=== PATIENT | female | born 1965 | race American Indian/Alaskan Native ===

== ENCOUNTER 2016-02-27 16:31 | Emergency (ER) | payer OTHER ==
[2016-02-27] MEDS ORDERED: TORADOL IM ONE (22:51)
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
[2016-02-27 23:43] VITALS: BP 159/95
== END 2016-02-27 23:48 | disposition left against medical advice (07) ==
LOC: ED 16:31
DX: M25.571 Pain in right ankle and joints of right foot (principal); V49.49XA Driver injured in collision with other motor vehicles in traffic accident, initial encounter; Y93.9 Activity, unspecified; Y92.9 Unspecified place or not applicable; Y99.9 Unspecified external cause status
CPT/HCPCS: 96372; 99282; J1885

== ENCOUNTER 2017-02-21 13:06 | Emergency (ER) | payer OTHER ==
[2017-02-21] MEDS ORDERED: NORCO 5/325 PO ONE (17:25)
--- NOTE | 2017-02-21 17:43 | Emergency Department Report ---
ED General Adult HPI - General Chief complaint: Medical Clearance Stated complaint: FALL, GENERAL PAIN Time Seen by Provider: 02/21/17 17:20 Source: patient, family Mode of arrival: Ambulatory Limitations: No Limitations - History of Present Illness Initial comments: pt is a 52 y/o aaf with hx of djd , lamminectomy, htn, who presents for GLF no loc yesterday at [facility] pt states shes was loading wood in cart and tripped and fell striking head chest and left tib fib pt states pain the head neck chest wall and LLTib/Fib region, there was no loc pt was immediately ambulatory after incident Pain is described as aching 6/10 generalized all low pain is exacerbated by movement , there is no weakness no blurred vision no n/v no numbness no tingling, no loss or decrease in bowel or bladder function pt ambulated to ed today states gait remains at baseline. Onset/Timin -: days(s) Location: head, neck, chest (chest wall ), lower extremity Radiation: non-radiation Severity scale (0 -10): 8 Quality: aching, other (soreness) Consistency: constant Improves with: none Worsens with: movement Associated Symptoms: chest pain (chest wall pain right lateral ), headaches. denies: confusion, cough, diaphoresis, fever/chills, loss of appetite, malaise, nausea/vomiting, rash, seizure, shortness of breath, syncope, weakness Treatments Prior to Arrival: none - Related Data Previous Rx's Medication Instructions Recorded Last Taken Type Ciprofloxacin HCl [Cipro] 250 mg PO BID #6 tablet 07/23/14 Unknown Rx Cyclobenzaprine [Flexeril] 10 mg PO TID PRN #15 tablet 02/27/16 Unknown Rx Ibuprofen [Motrin] 800 mg PO Q8HR PRN #15 tablet 02/27/16 Unknown Rx Acetaminophen 1,000 mg PO QID PRN #30 tablet 02/21/17 Unknown Rx Cyclobenzaprine [Flexeril] 10 mg PO BID PRN #20 tablet 02/21/17 Unknown Rx Menthol/Camphor [[place] 1 applicatio TP BID PRN #1 tube 02/21/17 Unknown Rx Ointment] traMADol [Ultram] 50 mg PO BID PRN #6 tablet 02/21/17 Unknown Rx Allergies Allergy/AdvReac Type Severity Reaction Status Date / Time tramadol Allergy Itching Verified 07/23/14 11:59 ED Review of Systems ROS: Stated complaint: FALL, GENERAL PAIN Other details as noted in HPI Constitutional: denies: chills, fever Eyes: denies: eye pain, eye discharge, vision change ENT: denies: ear pain, throat pain Respiratory: denies: cough, shortness of breath, wheezing Cardiovascular: chest pain (chest wall pain ). denies: palpitations, dyspnea on exertion, edema, syncope, paroxysmal nocturnal dyspnea Endocrine: no symptoms reported Gastrointestinal: denies: abdominal pain, nausea, vomiting, diarrhea, constipation, hematemesis, melena, hematochezia Genitourinary: denies: urgency, dysuria, frequency, hematuria, discharge, abnormal menses, dyspareunia Musculoskeletal: back pain, arthralgia, myalgia. denies: joint swelling Skin: denies: rash, lesions Neurological: denies: headache, weakness, numbness, paresthesias, confusion, abnormal gait, vertigo Psychiatric: denies: anxiety, depression Hematological/Lymphatic: denies: easy bleeding, easy bruising ED Past Medical Hx - Past Medical History Hx Hypertension: Yes - Surgical History Past Surgical History?: Yes Additional Surgical History: "hernia repair" "bladder sling" "gallbladder". Partial hysterectomy - Social History Smoking Status: Never Smoker Substance Use Type: None - Medications Home Medications: Home Medications Medication Instructions Recorded Confirmed Last Taken Type Ciprofloxacin HCl [Cipro] 250 mg PO BID #6 tablet 07/23/14 Unknown Rx Cyclobenzaprine [Flexeril] 10 mg PO TID PRN #15 tablet 02/27/16 Unknown Rx Ibuprofen [Motrin] 800 mg PO Q8HR PRN #15 tablet 02/27/16 Unknown Rx Acetaminophen 1,000 mg PO QID PRN #30 tablet 02/21/17 Unknown Rx Cyclobenzaprine [Flexeril] 10 mg PO BID PRN #20 tablet 02/21/17 Unknown Rx Menthol/Camphor [[place] 1 applicatio TP BID PRN #1 tube 02/21/17 Unknown Rx Ointment] traMADol [Ultram] 50 mg PO BID PRN #6 tablet 02/21/17 Unknown Rx ED Physical Exam - General Limitations: No Limitations General appearance: alert, in no apparent distress - Head Head exam: Present: atraumatic, normocephalic, normal inspection - Eye Eye exam: Present: normal appearance, PERRL, EOMI. Absent: nystagmus, periorbital swelling, periorbital tenderness Pupils: Present: normal accommodation - ENT ENT exam: Present: normal exam, normal orophraynx, mucous membranes dry, mucous membranes moist, TM's normal bilaterally, normal external ear exam - Expanded ENT Exam Expanded Ear exam: Present: normal external inspection Throat exam: Positive: normal inspection. Negative: tonsillar erythema, tonsillomegaly, tonsillar exudate - Neck Neck exam: Present: normal inspection, tenderness (bilat lateral neck muscle pain to deep palpation there is no posterior vertebral point tenderness no swellig no crepitus no ecchymois no deformity ), full ROM. Absent: meningismus , lymphadenopathy, thyromegaly - Expanded Neck Exam Expanded Neck exam: Present: tenderness. Absent: midline deformity, anterior neck swelling, thyroid mass, carotid bruit, tracheal deviation - Respiratory Respiratory exam: Present: normal lung sounds bilaterally, chest wall tenderness (right lateral ). Absent: respiratory distress, wheezes, stridor - Cardiovascular Cardiovascular Exam: Present: regular rate, normal rhythm, normal heart sounds - GI/Abdominal GI/Abdominal exam: Present: soft, normal bowel sounds. Absent: distended, tenderness, guarding, rebound, rigid, organomegaly, mass, bruit, hernia - Rectal Rectal exam: Present: deferred - Extremities Exam Extremities exam: Present: full ROM, tenderness (left tib fib ecchymosis no swelling ), normal capillary refill. Absent: pedal edema, joint swelling, calf tenderness - Expanded Lower Extremity Exam Left Lower Leg exam: Present: full ROM, tenderness, abrasion, ecchymosis, erythema. Absent: swelling, laceration, deformity, crepidus, dislocation, palpable cord, Albert's sign Ankle exam: Present: normal inspection, full ROM Foot/Toe exam: Present: normal inspection, full ROM Neuro vascular tendon exam: Present: no vascular compromise. Absent: pulse deficit, abnormal cap refill, motor deficit, sensory deficit, tendon deficit, extremity cold to touch, pallor, abnormal 2-point discrimination, decreased fine /light touch, foot drop, peroneal nerve deficit, significant pain with passive ROM of distal joint Gait: Positive: observed and normal - Back Exam Back exam: Present: normal inspection, full ROM, tenderness (bilat lumbar muscle tenderness no posterior vertebral point tenderness post straight leg right ), muscle spasm. Absent: CVA tenderness (R), CVA tenderness (L), paraspinal tenderness, vertebral tenderness, rash noted - Neurological Exam Neurological exam: Present: alert, oriented X3, CN II-XII intact, normal gait, reflexes normal. Absent: altered, motor sensory deficit - Psychiatric Psychiatric exam: Present: normal affect, normal mood. Absent: depressed - Skin Skin exam: Present: warm, dry, intact, normal color. Absent: rash ED Course Vital Signs 02/21/17 14:04 Temperature 98.6 F Pulse Rate 90 Respiratory 16 Rate Blood Pressure 148/86 [Right] O2 Sat by Pulse 95 Oximetry ED Medical Decision Making - Medical Decision Making p urvashi is a 52 y/o aaf with hx of djd , lamminectomy, htn, who presents for GLF no loc yesterday at [facility] pt states shes was loading wood in cart and tripped and fell striking head chest and left tib fib pt states pain the head neck chest wall and LLTib/Fib region, there was no loc pt was immediately ambulatory after incident Pain is described as aching 6/10 generalized all low pain is exacerbated by movement , there is no weakness no blurred vision , pt is perrla , eomi, conjunctiae with mild erythema rhight vision 20/40 bilat there is no eye pain , no n/v no numbness no tingling, no loss or decrease in bowel or bladder function pt ambulated to ed today states gait remains at baseline. exam : pt appears well nad, nontoxic exam: bilat lateral neck muscle pain to deep palpation there is no posterior vertebral point tenderness no swellig no crepitus no ecchymois no deformity, right lateral chest wall pain with palpation of right midaxillary line, tib fib ecchymosis bruising, no stepoff no creptius no no swelling , CT: head:normal, CT Cspine: Normal CXR: normal no fracture, Tib/ Fib Xray: no fractue, plan: treat for neck strain, chest wall pain, Tib fib contusion, fall, pt has oxycodone rx pending with pain management doctor as well as pain contract , plan; Tylenol 1 gm po qid prn, flexeril 10 mg po bid prn, tiger balm bid prn pain follow up with pain management doctor in 4 days as scheduled pt verbalized agreement and undestanding of same Critical care attestation.: If time is entered above; I have spent that time in minutes in the direct care of this critically ill patient, excluding procedure time. ED Disposition Clinical Impression: Chest wall pain Fall Qualifiers: Encounter type: initial encounter Qualified Code(s): W19.XXXA - Unspecified fall, initial encounter Neck muscle strain Qualifiers: Encounter type: initial encounter Qualified Code(s): S16.1XXA - Strain of muscle, fascia and tendon at neck level, initial encounter Contusion of lower leg, left Qualifiers: Encounter type: initial encounter Qualified Code(s): S80.12XA - Contusion of left lower leg, initial encounter Disposition: TO HOME OR SELFCARE Is pt being admited?: No Does the pt Need Aspirin: No Condition: Good Instructions: Chest Pain (ED), Costochondritis (ED), Contusion in Adults (ED), Cervical Spine Strain (ED) Prescriptions: Acetaminophen 1,000 mg PO QID PRN #30 tablet PRN Reason: Pain Cyclobenzaprine [Flexeril] 10 mg PO BID PRN #20 tablet PRN Reason: Muscle Spasm Menthol/Camphor [[place]an[place] Ointment] 1 applicatio TP BID PRN #1 tube PRN Reason: Pain traMADol [Ultram] 50 mg PO BID PRN #6 tablet PRN Reason: Pain sever Referrals: PRIMARY CARE,MD [Primary Care Provider] - 3-5 Days Forms: Work/School Release Form(ED) Time of Disposition: 19:02
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
--- NOTE | 2017-02-21 19:13 | XRay Report ---
FINAL REPORT PROCEDURE: XR CHEST ROUTINE 2V TECHNIQUE: PA and lateral chest radiographs were obtained. CPT 17896 HISTORY: Chest wall pain after fall. COMPARISON: No prior studies are available for comparison. FINDINGS: Heart: Normal. Mediastinum/Vessels: Mild aortic tortuosity. Lungs/Pleural space: Normal. Bony thorax: Osteopenia. Multilevel disc space narrowing and osteophytes. Other: IMPRESSION: No radiographic evidence of acute cardiopulmonary disease.
--- NOTE | 2017-02-21 19:14 | XRay Report ---
FINAL REPORT PROCEDURE: XR TIBIA FIBULA 2V LT TECHNIQUE: LEFT tibia and fibula radiographs, AP and lateral views. CPT 78799 HISTORY: Leg pain after fall. COMPARISON: No prior studies are available for comparison. FINDINGS: Fracture (s) and/or Dislocation(s): None . Joint space(s): Moderate medial compartment narrowing and osteophytes. Small patellar osteophytes and enthesophytes. Plantar and calcaneal spurs. Slight genu varum. Soft tissues: Normal . Bone mineralization: Normal . Foreign bodies: None . IMPRESSION: Degenerative changes without radiographic evidence of displaced fracture.
[2017-02-21 19:22] VITALS: BP 133/85
== END 2017-02-21 19:20 | disposition home or self-care (01) ==
LOC: ED 13:06
DX: S16.1XXA Strain of muscle, fascia and tendon at neck level, initial encounter (principal); S80.12XA Contusion of left lower leg, initial encounter; R07.89 Other chest pain; R51 Headache; I10 Essential (primary) hypertension; Z88.6 Allergy status to analgesic agent; Z90.710 Acquired absence of both cervix and uterus; W01.198A Fall on same level from slipping, tripping and stumbling with subsequent striking against other object, initial encounter; Y93.89 Activity, other specified; Y99.8 Other external cause status; Y92.89 Other specified places as the place of occurrence of the external cause
CPT/HCPCS: 70450; 71046; 72125; 99284

== ENCOUNTER 2018-02-09 10:33 | Emergency (ER) | payer OTHER ==
--- NOTE | 2018-02-09 13:07 | Emergency Department Report ---
ED Upper Extremity Inj HPI - General Chief Complaint: Extremity Injury, Upper Stated Complaint: RT ARM PAIN Time Seen by Provider: 02/09/18 12:31 Source: patient Mode of arrival: Ambulatory Limitations: No Limitations - History of Present Illness Initial Comments: 52-year-old female presents with compliant of bruising to right upper arm after donating plasma 6 days ago. Patient states she has done it before and this has never happened. She states when they were infusing the blood back into her arm she experienced pain at that time. Denies pain currently or swelling. She states bruising has just been getting progressively worse. Patient reports itching in the area of the bruising. MD Complaint: Injury to:: right, arm -: days(s) (6) Other Injuries: none Place: other (plasma donation center) Improves With: none Worsens With: none Context: other (donating plasma) - Related Data Previous Rx's Medication Instructions Recorded Last Taken Type Ciprofloxacin HCl [Cipro] 250 mg PO BID #6 tablet 07/23/14 Unknown Rx Cyclobenzaprine [Flexeril] 10 mg PO TID PRN #15 tablet 02/27/16 Unknown Rx Ibuprofen [Motrin] 800 mg PO Q8HR PRN #15 tablet 02/27/16 Unknown Rx Acetaminophen 1,000 mg PO QID PRN #30 tablet 02/21/17 Unknown Rx Cyclobenzaprine [Flexeril] 10 mg PO BID PRN #20 tablet 02/21/17 Unknown Rx Menthol/Camphor [[place] 1 applicatio TP BID PRN #1 tube 02/21/17 Unknown Rx Ointment] traMADol [Ultram] 50 mg PO BID PRN #6 tablet 02/21/17 Unknown Rx Allergies Allergy/AdvReac Type Severity Reaction Status Date / Time tramadol Allergy Itching Verified 02/09/18 11:01 ED Review of Systems ROS: Stated complaint: RT ARM PAIN Other details as noted in HPI Comment: All other systems reviewed and negative Constitutional: denies: chills, fever Musculoskeletal: other (denies arm pain) Skin: change in color Hematological/Lymphatic: denies: easy bleeding, easy bruising ED Past Medical Hx - Past Medical History Previous Medical History?: Yes Hx Hypertension: Yes Additional medical history: HLD, sciatica - Surgical History Past Surgical History?: Yes Additional Surgical History: "hernia repair" "bladder sling" "gallbladder". Partial hysterectomy - Social History Smoking Status: Never Smoker Substance Use Type: None - Medications Home Medications: Home Medications Medication Instructions Recorded Confirmed Last Taken Type Ciprofloxacin HCl [Cipro] 250 mg PO BID #6 tablet 07/23/14 Unknown Rx Cyclobenzaprine [Flexeril] 10 mg PO TID PRN #15 tablet 02/27/16 Unknown Rx Ibuprofen [Motrin] 800 mg PO Q8HR PRN #15 tablet 02/27/16 Unknown Rx Acetaminophen 1,000 mg PO QID PRN #30 tablet 02/21/17 Unknown Rx Cyclobenzaprine [Flexeril] 10 mg PO BID PRN #20 tablet 02/21/17 Unknown Rx Menthol/Camphor [[place] 1 applicatio TP BID PRN #1 tube 02/21/17 Unknown Rx Ointment] traMADol [Ultram] 50 mg PO BID PRN #6 tablet 02/21/17 Unknown Rx ED Physical Exam - General Limitations: No Limitations General appearance: alert, in no apparent distress - Head Head exam: Present: atraumatic, normocephalic - Eye Eye exam: Present: normal appearance - ENT ENT exam: Present: mucous membranes moist - Neck Neck exam: Present: normal inspection - Respiratory Respiratory exam: Present: normal lung sounds bilaterally. Absent: respiratory distress - Cardiovascular Cardiovascular Exam: Present: regular rate, normal rhythm - GI/Abdominal GI/Abdominal exam: Present: soft. Absent: distended - Extremities Exam Extremities exam: Present: normal capillary refill, other (extensive ecchymosis to right upper arm, almost circumferential, approx 8 cm in width, from just above the elbow, does not extend up into the axilla or to the shoulder) - Neurological Exam Neurological exam: Present: alert, oriented X3, CN II-XII intact. Absent: motor sensory deficit - Psychiatric Psychiatric exam: Present: normal affect, normal mood - Skin Skin exam: Present: warm, dry, intact ED Course Vital Signs 02/09/18 02/09/18 10:40 13:09 Temperature 98.2 F Pulse Rate 111 H 90 Respiratory 18 18 Rate Blood Pressure 171/97 Blood Pressure 139/79 [Right] O2 Sat by Pulse 96 97 Oximetry ED Medical Decision Making - Lab Data Result diagrams: 02/09/18 13:03 - Medical Decision Making 53-year-old female presenting with right upper arm ecchymosis following plasma donation 6 days ago. Labs normal including platelets and coags. Bruising possibly due to tourniquet, cuff inflation, or traumatic venipuncture. The patient has no swelling to her arm, she is neurovascularly intact distally. The patient return precautions. Advised not to donate until bruising resolves. Patient advised to follow with PCP. - Differential Diagnosis thrombocytopenia, coagulopathy, trauma Critical care attestation.: If time is entered above; I have spent that time in minutes in the direct care of this critically ill patient, excluding procedure time. ED Disposition Clinical Impression: Ecchymosis Disposition: DC-01 TO HOME OR SELFCARE Is pt being admited?: No Condition: Stable Referrals: BENTLEY SHEIKH MD [Primary Care Provider] - 3-5 Days Time of Disposition: 13:54
[2018-02-09 13:11] VITALS: BP 139/79
[2018-02-09 13:15] LABS: Basophils % (Auto) 0.7 % (0.0-1.8); Eosinophils # (Auto) 0.2 K/mm3 (0.0-0.4); Eosinophils % (Auto) 2.4 % (0.0-4.3); Hematocrit 38.5 % (30.3-42.9); Hemoglobin 12.6 gm/dl (10.1-14.3); Lymphocytes # (Auto) 2.2 K/mm3 (1.2-5.4); Lymphocytes % (Auto) 31.4 % (13.4-35.0); Mean Corpuscular HGB Conc 33 % (30-34); Mean Corpuscular Volume 90 fl (79-97); Monocytes # (Auto) 0.5 K/mm3 (0.0-0.8); Monocytes % (Auto) 7.3 % (0.0-7.3); Platelet Count 223 K/mm3 (140-440); Red Cell Distribution Width 14.4 % (13.2-15.2)
[2018-02-09 13:29] LABS: INR 0.81 (0.87-1.13)
[2018-02-09 13:30] LABS: Partial Thromboplastin Time 24.7 Sec. (24.2-36.6)
== END 2018-02-09 14:13 | disposition home or self-care (01) ==
LOC: ED 10:33
DX: S40.021A Contusion of right upper arm, initial encounter (principal); I10 Essential (primary) hypertension; E78.5 Hyperlipidemia, unspecified; X58.XXXA Exposure to other specified factors, initial encounter; Y93.89 Activity, other specified; Y92.89 Other specified places as the place of occurrence of the external cause; Y99.8 Other external cause status
CPT/HCPCS: 36415; 85025; 85610; 85730

== ENCOUNTER 2019-02-08 11:18 | Emergency (ER) | payer OTHER ==
[2019-02-08 11:33] VITALS: BP 137/80
--- NOTE | 2019-02-08 12:33 | Event Note ---
ED Screening Note Date of service: 02/08/19 Time: 12:30 ED Screening Note: Pt complains of sore throat and painful swallowing x yesterday 9/10 pain severity +tender cervical LNs This initial assessment/diagnostic orders/clinical plan/treatment(s) is/are subject to change based on patients health status, clinical progression and re- assessment by fellow clinical providers in the ED. Further treatment and workup at subsequent clinical providers discretion. Patient/guardian urged not to elope from the ED as their condition may be serious if not clinically assessed and managed. Initial orders include: rapid strep
--- NOTE | 2019-02-08 13:57 | Emergency Department Report ---
ED General Adult HPI - General Chief complaint: Sore Throat Stated complaint: THROAT PAIN,NECK AND BACK PAIN Time Seen by Provider: 02/08/19 13:45 Source: patient Mode of arrival: Ambulatory Limitations: No Limitations - History of Present Illness Initial comments: 54 yo AA F Pt complains of sore throat and painful swallowing x yesterday. She rates her pain as a 9/10 pain severity. She denies difficulty swallowing, drooling, or fever. She states [id number] ibuprofen is not helping. She also denies nausea/vomiting/diarrhea or cough. -: Sudden - Related Data Previous Rx's Medication Instructions Recorded Last Taken Type Ciprofloxacin HCl [Cipro] 250 mg PO BID #6 tablet 07/23/14 Unknown Rx Cyclobenzaprine [Flexeril] 10 mg PO TID PRN #15 tablet 02/27/16 Unknown Rx Ibuprofen [Motrin] 800 mg PO Q8HR PRN #15 tablet 02/27/16 Unknown Rx Acetaminophen 1,000 mg PO QID PRN #30 tablet 02/21/17 Unknown Rx Cyclobenzaprine [Flexeril] 10 mg PO BID PRN #20 tablet 02/21/17 Unknown Rx Menthol/Camphor [[place] 1 applicatio TP BID PRN #1 tube 02/21/17 Unknown Rx Ointment] traMADoL [Ultram] 50 mg PO BID PRN #6 tablet 02/21/17 Unknown Rx Ibuprofen [Motrin 800 MG tab] 800 mg PO Q8HR PRN #15 tablet 02/08/19 Unknown Rx predniSONE [Deltasone] 20 mg PO TID 2 Days #6 tab 02/08/19 Unknown Rx Allergies Allergy/AdvReac Type Severity Reaction Status Date / Time tramadol Allergy Itching Verified 02/09/18 11:01 ED Review of Systems ROS: Stated complaint: THROAT PAIN,NECK AND BACK PAIN Other details as noted in HPI Constitutional: denies: chills, fever ENT: throat pain Respiratory: denies: cough, shortness of breath Cardiovascular: denies: chest pain Gastrointestinal: denies: abdominal pain, nausea, vomiting Musculoskeletal: myalgia Skin: denies: rash, lesions Neurological: denies: headache ED Past Medical Hx - Past Medical History Hx Hypertension: Yes Additional medical history: HLD, sciatica - Surgical History Additional Surgical History: "hernia repair" "bladder sling" "gallbladder". Partial hysterectomy - Social History Smoking Status: Never Smoker - Medications Home Medications: Home Medications Medication Instructions Recorded Confirmed Last Taken Type Ciprofloxacin HCl [Cipro] 250 mg PO BID #6 tablet 07/23/14 Unknown Rx Cyclobenzaprine [Flexeril] 10 mg PO TID PRN #15 tablet 02/27/16 Unknown Rx Ibuprofen [Motrin] 800 mg PO Q8HR PRN #15 tablet 02/27/16 Unknown Rx Acetaminophen 1,000 mg PO QID PRN #30 tablet 02/21/17 Unknown Rx Cyclobenzaprine [Flexeril] 10 mg PO BID PRN #20 tablet 02/21/17 Unknown Rx Menthol/Camphor [[place] 1 applicatio TP BID PRN #1 tube 02/21/17 Unknown Rx Ointment] traMADoL [Ultram] 50 mg PO BID PRN #6 tablet 02/21/17 Unknown Rx Ibuprofen [Motrin 800 MG tab] 800 mg PO Q8HR PRN #15 tablet 02/08/19 Unknown Rx predniSONE [Deltasone] 20 mg PO TID 2 Days #6 tab 02/08/19 Unknown Rx ED Physical Exam - General Limitations: No Limitations General appearance: alert, in no apparent distress - Head Head exam: Present: atraumatic, normocephalic - Eye Eye exam: Present: normal appearance - ENT ENT exam: Present: mucous membranes moist - Expanded ENT Exam Expanded Mouth exam: Absent: drooling, trismus Throat exam: Positive: tonsillar erythema, tonsillomegaly (mild). Negative: tonsillar exudate, R peritonsillar mass, L peritonsillar mass - Neck Neck exam: Present: full ROM, lymphadenopathy (mild anterior cervical). Absent: meningismus - Respiratory Respiratory exam: Present: normal lung sounds bilaterally. Absent: respiratory distress - Cardiovascular Cardiovascular Exam: Present: regular rate, normal rhythm. Absent: systolic murmur, diastolic murmur, rubs, gallop - GI/Abdominal GI/Abdominal exam: Absent: tenderness - Back Exam Back exam: Present: full ROM - Neurological Exam Neurological exam: Present: alert, oriented X3 - Psychiatric Psychiatric exam: Present: normal affect, normal mood - Skin Skin exam: Present: warm, dry, intact, normal color. Absent: rash, cyanosis, diaphoretic, erythema ED Course Vital Signs 02/08/19 02/08/19 11:31 14:16 Temperature 98.3 F Pulse Rate 94 H Respiratory 16 18 Rate Blood Pressure 137/80 O2 Sat by Pulse 96 Oximetry ED Medical Decision Making - Medical Decision Making Patient presents with complaints of throat pain x yesterday. Rapid strep is negative. Erythema and mild tonsillar swelling noted on exam without exudate. Vitals are normal. Centor's criteria score = 1. Patient is stable for discharge home with treatment for viral pharyngitis area recommend follow-up with primary care provider in 3-5 days. Patient to discharge home with prednisone and ibuprofen. Discussed strict return precautions in detail with patient who verbalizes understanding Critical care attestation.: If time is entered above; I have spent that time in minutes in the direct care of this critically ill patient, excluding procedure time. ED Disposition Clinical Impression: Pharyngitis Qualifiers: Pharyngitis/tonsillitis etiology: other specified organisms Qualified Code(s): J02.8 - Acute pharyngitis due to other specified organisms Disposition: DC- TO HOME OR SELFCARE Is pt being admited?: No Condition: Stable Instructions: Pharyngitis (ED) Prescriptions: predniSONE [Deltasone] 20 mg PO TID 2 Days #6 tab Ibuprofen [Motrin 800 MG tab] 800 mg PO Q8HR PRN #15 tablet PRN Reason: pain Referrals: PRIMARY CARE, [Referring] - 3-5 Days
[2019-02-08] MEDS ORDERED: IBUPROFEN 800 MG TAB PO ONE (14:05)
[2019-02-08] MEDS ORDERED: predniSONE 20 MG TAB PO ONE (14:05)
== END 2019-02-08 14:38 | disposition home or self-care (01) ==
LOC: ED 11:18
DX: J02.9 Acute pharyngitis, unspecified (principal); I10 Essential (primary) hypertension; Z90.710 Acquired absence of both cervix and uterus; Z79.899 Other long term (current) drug therapy; Z88.8 Allergy status to other drugs, medicaments and biological substances
CPT/HCPCS: 87116; 87430; 99283; J7512

== ENCOUNTER 2019-04-14 13:24 | Outpatient (CLI) | payer OTHER ==
--- NOTE | 2019-04-14 14:24 | XRay Report ---
RIGHT FOOT 3 VIEWS INDICATION: POST TRAUMA PAIN. COMPARISON: None. IMPRESSION: No acute osseous or soft tissue abnormality. No significant DJD. Small plantar spur i s noted. Signer Name: Alexis Wilson Jr, MD Signed: 04/14/2019 2:20 PM Workstation Name: [id number]
== END 2019-04-14 13:25 | disposition home or self-care (01) ==
LOC: XRAY 13:24
PROVIDERS: ATTEND Urology
DX: M77.31 Calcaneal spur, right foot (principal); M79.671 Pain in right foot

== ENCOUNTER 2021-01-12 16:25 | Outpatient (CLI) | payer OTHER ==
--- NOTE | 2021-01-12 22:32 | XRay Report ---
BILATERAL KNEE 2 VIEW(S) INDICATION / CLINICAL INFORMATION: M25.569, PAIN IN UNSPECIFIED KNEE COMPARISON: None available. FINDINGS: BONES / JOINT(S): No acute fracture or subluxation. There is [id number] degenerative joint dise ase of bilateral knees. SOFT TISSUES: No significant abnormality. ADDITIONAL FINDINGS: None. Signer Name: Guillermo Lang DO Signed: 01/12/2021 10:28 PM Workstation Name: [id number]
== END 2021-01-12 16:26 | disposition home or self-care (01) ==
LOC: XRAY 16:25
PROVIDERS: ATTEND Orthopaedic Surgery
DX: M25.562 Pain in left knee (principal); M25.561 Pain in right knee

== ENCOUNTER 2021-03-31 15:16 | Emergency (ER) | payer OTHER ==
[2021-03-31] MEDS ORDERED: DEXAMETHASONE 4 MG TAB PO ONE (17:04)
[2021-03-31] MEDS ORDERED: KETOROLAC 10 MG TAB PO ONE (17:04)
[2021-03-31] MEDS ORDERED: MORPHINE 4 MG/1 ML INJ IM ONE (17:07)
[2021-03-31] MEDS ORDERED: ONDANSETRON 4 MG ODT TAB PO ONE (17:08)
--- NOTE | 2021-03-31 17:28 | XRay Report ---
CHEST 2 VIEWS INDICATION / CLINICAL INFORMATION: chest pain. COMPARISON: 02/21/2017 FINDINGS: SUPPORT DEVICES: None. HEART / MEDIASTINUM: No significant abnormality. LUNGS / PLEURA: No significant pulmonary or pleural abnormality. No pneumothorax. ADDITIONAL FINDINGS: No significant additional findings. IMPRESSION: 1. No acute findings. Signer Name: Guillermo Lang DO Signed: 03/31/2021 5:24 PM Workstation Name: [email or web address]
--- NOTE | 2021-03-31 17:42 | Emergency Department Report ---
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 She states that she started a second job a couple of weeks ago and feels that pain is related to increased work. She denies injury. She states that she has a history of chronic back pain, sees a pain care doctor, but states that her normal Percoet that she takes is not managing her pain. She also c/o BLE swelling for which she is following with her pcp for. She states that she feels like she is having some SOB also. MD Complaint: back pain -: Gradual, week(s) (1) Similar Symptoms Previously: Yes Place: home, work Radiation: right leg Severity: severe Severity scale (0 -10): 10 Quality: burning, aching Consistency: constant Improves With: none Worsens With: movement, walking Associated Symptoms: chest pain, shortness of breath. denies: difficulty walking, cough, difficulty urinating, diaphoresis, headaches, abdominal pain, nausea/vomiting, syncope Treatments Prior to Arrival: prescription analgesics - Related Data Previous Rx's Medication Instructions Recorded Last Taken Type Ciprofloxacin HCl [Cipro] 250 mg PO BID #6 tablet 07/23/14 Unknown Rx Cyclobenzaprine [Flexeril] 10 mg PO TID PRN #15 tablet 02/27/16 Unknown Rx Ibuprofen [Motrin] 800 mg PO Q8HR PRN #15 tablet 02/27/16 Unknown Rx Acetaminophen 1,000 mg PO QID PRN #30 tablet 02/21/17 Unknown Rx Cyclobenzaprine [Flexeril] 10 mg PO BID PRN #20 tablet 02/21/17 Unknown Rx Menthol/Camphor [[place] 1 applicatio TP BID PRN #1 tube 02/21/17 Unknown Rx Ointment] traMADoL [Ultram] 50 mg PO BID PRN #6 tablet 02/21/17 Unknown Rx Ibuprofen [Motrin 800 MG tab] 800 mg PO Q8HR PRN #15 tablet 01/04/20 Unknown Rx predniSONE [Deltasone] 20 mg PO TID 2 Days #6 tab 02/08/19 Unknown Rx Naproxen [Naprosyn] 500 mg PO BID #14 tab 03/31/21 Unknown Rx methylPREDNISolone [Medrol 4MG 4 mg PO DAILY #1 pack 03/31/21 Unknown Rx DOSEPAK (21 tabs)] Allergies Allergy/AdvReac Type Severity Reaction Status Date / Time tramadol Allergy Itching Verified 02/09/18 11:01 ED Review of Systems ROS: Stated complaint: BACK/HIP/LEG PAIN SWOLLEN Other details as noted in HPI Comment: All other systems reviewed and negative Constitutional: denies: chills, diaphoresis, fever, malaise, weakness Eyes: denies: eye pain ENT: denies: ear pain, throat pain Respiratory: shortness of breath. denies: cough, orthopnea, SOB with exertion Cardiovascular: denies: chest pain, palpitations, dyspnea on exertion, orthopnea, edema, syncope, paroxysmal nocturnal dyspnea Endocrine: no symptoms reported Gastrointestinal: denies: abdominal pain, nausea, vomiting, diarrhea, hematemesis, melena, hematochezia Genitourinary: denies: urgency, dysuria, frequency, discharge, abnormal menses, dyspareunia Musculoskeletal: denies: back pain Skin: denies: rash, lesions Neurological: numbness. denies: headache, weakness, paresthesias, abnormal gait Psychiatric: denies: anxiety Hematological/Lymphatic: denies: easy bleeding, easy bruising ED Past Medical Hx - Past Medical History Hx Hypertension: Yes Additional medical history: HLD, sciatica - Surgical History Additional Surgical History: "hernia repair" "bladder sling" "gallbladder". Partial hysterectomy - Social History Smoking Status: Never Smoker - Medications Home Medications: Home Medications Medication Instructions Recorded Confirmed Last Taken Type Ciprofloxacin HCl [Cipro] 250 mg PO BID #6 tablet 07/23/14 Unknown Rx Cyclobenzaprine [Flexeril] 10 mg PO TID PRN #15 tablet 02/27/16 Unknown Rx Ibuprofen [Motrin] 800 mg PO Q8HR PRN #15 tablet 02/27/16 Unknown Rx Acetaminophen 1,000 mg PO QID PRN #30 tablet 02/21/17 Unknown Rx Cyclobenzaprine [Flexeril] 10 mg PO BID PRN #20 tablet 02/21/17 Unknown Rx Menthol/Camphor [[place] 1 applicatio TP BID PRN #1 tube 02/21/17 Unknown Rx Ointment] traMADoL [Ultram] 50 mg PO BID PRN #6 tablet 02/21/17 Unknown Rx Ibuprofen [Motrin 800 MG tab] 800 mg PO Q8HR PRN #15 tablet 02/08/19 Unknown Rx predniSONE [Deltasone] 20 mg PO TID 2 Days #6 tab 02/08/19 Unknown Rx Naproxen [Naprosyn] 500 mg PO BID #14 tab 03/31/21 Unknown Rx methylPREDNISolone [Medrol 4MG 4 mg PO DAILY #1 pack 03/31/21 Unknown Rx DOSEPAK (21 tabs)] ED Physical Exam - General Limitations: No Limitations General appearance: alert, in no apparent distress - Head Head exam: Present: atraumatic, normocephalic - Eye Eye exam: Present: normal appearance. Absent: conjunctival injection - Neck Neck exam: Present: normal inspection - Respiratory Respiratory exam: Present: normal lung sounds bilaterally, respiratory distress. Absent: wheezes, rales, rhonchi, chest wall tenderness - Cardiovascular Cardiovascular Exam: Present: regular rate, normal heart sounds - GI/Abdominal GI/Abdominal exam: Present: soft, normal bowel sounds. Absent: distended, tenderness, guarding, rebound, rigid - Extremities Exam Extremities exam: Present: normal inspection - Back Exam Back exam: Present: normal inspection, full ROM, tenderness (bilateral lower with radiation down right leg). Absent: CVA tenderness (R), CVA tenderness (L), paraspinal tenderness, vertebral tenderness - Neurological Exam Neurological exam: Present: alert, oriented X3 - Psychiatric Psychiatric exam: Present: normal affect, normal mood - Skin Skin exam: Present: warm, dry, intact, normal color ED Course Vital Signs 03/31/21 03/31/21 16:44 18:08 Temperature 98.4 F 98.2 F Pulse Rate 93 H 87 Respiratory 18 12 Rate Blood Pressure 120/80 [Right] O2 Sat by Pulse 96 98 Oximetry ED Medical Decision Making - Radiology Data Radiology results: report reviewed, image reviewed CXR without any acute abnormalities - Medical Decision Making 56 yo black female with extensive pmh including HTN, arthritis in hips and back, herniated discs, and scoliosis presents to ed for evaluation of one week history of back, bilateral hip, and bilateral knee pain. She states that she s tarted a second job a couple of weeks ago and feels that pain is related to increased work. She denies injury. She states that she has a history of chronic back pain, sees a pain care doctor, but states that her normal Percoet that she takes is not managing her pain. She also c/o BLE swelling for which she is following with her pcp for. She states that she feels like she is having some SOB also. CXR without acute abnormalities. Patient will be treated with medrol dose pack for lumbar radicular pain and advised to follow up with pain management doctor for pain not improved and will pcp for management of BLE swelling. She states that her pcp already started her on a diuretic. she verbalized understanding of and agreement with plan of care. Critical care attestation.: If time is entered above; I have spent that time in minutes in the direct care of this critically ill patient, excluding procedure time. ED Disposition Clinical Impression: Hip pain, bilateral, Knee pain, bilateral Back pain Qualifiers: Back pain location: low back pain Chronicity: chronic Back pain laterality: bilateral Sciatica presence: with sciatica Sciatica laterality: sciatica of right side Qualified Code(s): M54.41 - Lumbago with sciatica, right side Disposition: 01 HOME / SELF CARE / HOMELESS Is pt being admited?: No Does the pt Need Aspirin: No Condition: Stable Instructions: Radicular Pain, Sciatica, [id number], Chronic Back Pain, [id number], Chronic Knee Pain, Adult, How to Use Cold Therapy, Acute Knee Pain, Adult, [id number] Additional Instructions: Take medications as prescribed. Follow-up with pain management doctor for management of pain. Follow-up with primary care provider for management of swelling. Return to the emergency department for worsening symptoms. Prescriptions: methylPREDNISolone [Medrol 4MG DOSEPAK (21 tabs)] 4 mg PO DAILY #1 pack Naproxen [Naprosyn] 500 mg PO BID #14 tab Referrals: SINA KINSEY MD [Referring] - 3-5 Days Time of Disposition: 17:42
[2021-03-31 18:09] VITALS: BP 120/80
== END 2021-03-31 18:09 | disposition home or self-care (01) ==
LOC: ED 15:16
DX: M25.552 Pain in left hip (principal); M25.551 Pain in right hip; M25.562 Pain in left knee; M25.561 Pain in right knee; M54.41 Lumbago with sciatica, right side; I10 Essential (primary) hypertension
CPT/HCPCS: 71046; 96372; 99283; J2270; J8540; J3490; Q0162

== ENCOUNTER 2021-04-26 12:50 | Outpatient (CLI) | payer OTHER ==
--- NOTE | 2021-04-26 15:44 | XRay Report ---
Bilateral knees-5 total views INDICATION: Bilateral primary osteoarthritis of knee. COMPARISON: None available. IMPRESSION: No acute osseous abnormality. Normal alignment. Moderate to severe degenerative arthros is in each respective medial compartment and in the right patellofemoral compartment. Soft tissues a re unremarkable. Signer Name: Ross Bourne MD Signed: 04/26/2021 3:40 PM Workstation Name: [id number]
== END 2021-04-26 12:51 | disposition home or self-care (01) ==
LOC: XRAY 12:50
PROVIDERS: ATTEND Orthopaedic Surgery
DX: M17.11 Unilateral primary osteoarthritis, right knee (principal); E66.01 Morbid (severe) obesity due to excess calories